=== PATIENT | female | born 1990 | race Caucasian/White ===

== ENCOUNTER 2016-07-16 13:24 | Inpatient (IN) | payer OTHER ==
[~2016-07-16] VITALS: Ht 157.5 cm; Wt 54.4 kg
[2016-07-16 14:44] LABS: RED BLOOD COUNT 4.16 M/UL (4.00-5.10); WHITE BLOOD COUNT 17.7 K/UL (4.5-11.0)
[2016-07-16 15:08] LABS: BUN/CREATININE RATIO 7 (0-10)
[2016-07-17 06:07] LABS: HEMOGLOBIN 13.1 gm/dl (12.3-15.3); RED BLOOD COUNT 4.15 M/UL (4.00-5.10); WHITE BLOOD COUNT 15.3 K/UL (4.5-11.0)
[2016-07-17 06:25] LABS: BUN/CREATININE RATIO 6 (0-10)
[2016-07-18 05:35] LABS: HEMOGLOBIN 11.9 gm/dl (12.3-15.3); RED BLOOD COUNT 3.81 M/UL (4.00-5.10)
[2016-07-18 05:36] LABS: WHITE BLOOD COUNT 8.6 K/UL (4.5-11.0)
[2016-07-18 05:55] LABS: BUN/CREATININE RATIO 9 (0-10)
[2016-07-18] MEDS ORDERED: LEVAQUIN750 MG PO (09:48)
== END 2016-07-18 10:45 | disposition home or self-care (01) | DRG 872 ==
LOC: ER1 13:24 → ZEROF 16:41 → M/S 21:48
PROVIDERS: Emergency Medicine; ADMIT Internal Medicine
DX: A41.9 Sepsis, unspecified organism (principal); N13.30 Unspecified hydronephrosis; N10 Acute pyelonephritis; B96.20 Unspecified Escherichia coli [E. coli] as the cause of diseases classified elsewhere; E87.6 Hypokalemia; E83.42 Hypomagnesemia; F17.210 Nicotine dependence, cigarettes, uncomplicated; N20.0 Calculus of kidney; F12.10 Cannabis abuse, uncomplicated; Z83.3 Family history of diabetes mellitus; Z80.41 Family history of malignant neoplasm of ovary; Z80.8 Family history of malignant neoplasm of other organs or systems; Z91.041 Radiographic dye allergy status
CPT/HCPCS: 36415; 73630; 80048; 80053; 80307; 81001; 82150; 83605; 83690; 83735; 84703; 85025; 85027; 87040; 87077; 87086; 87186; 96361; 96365; 96375; 99285; J0696; J7030; J7050